=== PATIENT | female | born 1990 | race Two or more races ===

== ENCOUNTER 2019-06-25 17:49 | Emergency (ER) | payer OTHER ==
[~2019-06-25] VITALS: Ht 165.1 cm; Wt 87.0 kg
[2019-06-25 18:16] VITALS: BP 150/106
[2019-06-25] MEDS ORDERED: ONDANSETRON HCL 4MG/2ML INJ IV STA (18:29)
[2019-06-25] MEDS ORDERED: SODIUM CHLORIDE 0.9% 1,000 ML IV ONE (18:29)
[2019-06-25 18:55] LABS: BASOPHILS % 0.4 % (0.0-2.0); EOSINOPHILS % 0.3 % (0.0-5.0); HEMATOCRIT. 43.6 % (36.0-48.0); HEMOGLOBIN. 14.8 g/dL (12.0-16.0); LYMPHOCYTES % 20.7 % (20.0-50.0); MEAN CORPUSCULAR VOLUME 79.4 fL (81.0-99.0); MEAN PLATELET VOLUME 8.5 fl (7.4-10.4); NEUTROPHILS % 70.6 % (40.0-76.0); PLATELET 260 x1000/uL (130-400); RED BLOOD CELL COUNT 5.49 mill/uL (4.2-5.4)
[2019-06-25 19:00] LABS: CHLORIDE 109 mEq/L (98-107)
[2019-06-25] MEDS ORDERED: ACETAMINOPHEN 500MG TABLET PO ONE (19:00)
[2019-06-25] MEDS ORDERED: METOCLOPRAMIDE HCL 10MG/2ML VIAL IV ONE (20:15)
[2019-06-25 21:11] LABS: HCG SCREEN NEGATIVE
== END 2019-06-25 20:37 | disposition home or self-care (01) ==
LOC: ER 17:49
DX: R11.0 Nausea (principal); Z90.49 Acquired absence of other specified parts of digestive tract
CPT/HCPCS: 36415; 80053; 81025; 83690; 84703; 85025; 96361; 96374; 96375; 99283; J2405; J2765; J7030